=== PATIENT | female | born 1955 | race Asian ===

== ENCOUNTER → 2016-08-29 | Outpatient (CLI) | payer OTHER ==
[~2016-08-29] MED LIST: DEPO METHYLPREDNISOLONE 80 MG/ML SDV ONE; IOPAMIDOL (ISOVUE 370) 100 ML BTL IV ONE; LIDOCAINE 1% 30 ML SDV ONE; NA BICARBONATE 50 MEQ/50 ML VIAL ONE; ROPIVACAINE HCL 150 MG/30 ML INJ ONE
--- NOTE | 2016-08-29 14:54 | DX ---
Fluoroscopically Guided left hip Joint Injection With long acting anesthetic and steroid. Clinical History: Left hip osteoarthritis. Crosscutting Measure #226: Current tobacco user: no. Technique: The patient was advised as to the risks, benefits, and alternatives of the procedure, and written consent was obtained and witnessed after all questions had been answered. The left hip was pr epped and draped in the usual sterile fashion. 1% lidocaine was used subcutaneously as a local anesth etic. A 22-gauge spinal needle was advanced under fluoroscopy into the left hip joint. Omnipaque was injected to confirm appropriate tip positioning. Subsequently, 80 mg Depo-Medrol and 4 mL ropivacaine was injected. The needle was removed. The patient tolerated the procedure well, and there were no im mediate complications. Impression: Fluoroscopically guided left hip joint injection with long acting anesthetic and steroid.
== END ==
LOC: FIMAGING 13:09
PROVIDERS: ATTEND Physician Assistant
PROC: 3E0U33Z Introduction of Anti-inflammatory into Joints, Percutaneous Approach (ICD-10-PCS; principal; 2016-08-29)
DX: M16.12 Unilateral primary osteoarthritis, left hip (principal)
CPT/HCPCS: J1020; J2795; Q9967